=== PATIENT | female | born 1985 | race Caucasian/White ===

== ENCOUNTER → 2024-12-09 | Outpatient (CLI) | payer SELFPAY ==
[2024-12-09 11:11] LABS: HCT 37.8 % (37.2-46.3); HGB 13.0 g/dL (12.0-15.0); MCH 31.6 pg (27.0-32.0); MCHC 34.4 g/dL (32.0-37.0); MCV 91.7 fL (80.0-97.0); Platelet Count 297 10*3/uL (140-440); RBC 4.12 10*6/uL (4.10-5.20); RDW 12.1 % (11.5-14.5); WBC 8.39 10*3/uL (4.50-10.00)
[2024-12-09 11:43] LABS: T4, Free (Free Thyroxine) 1.14 ng/dL (0.78-2.19)
[2024-12-09 15:41] LABS: Hepatitis C IgG Antibody Nonreactive (Nonreactive)
[2024-12-09 15:48] LABS: Follicle Stimulating Hormone 5.4 mIU/mL
[2024-12-09 17:07] LABS: HIV 2 AB Non-Reactive (Non-Reactive); HIV AB P24 Non-Reactive (Non-Reactive); HIV P24 AG Non-Reactive (Non-Reactive)
== END | disposition home or self-care (01) ==
LOC: LABWHC1 10:39
PROVIDERS: ATTEND Obstetrics & Gynecology Reproductive Endocrinology
DX: Z11.3 Encounter for screening for infections with a predominantly sexual mode of transmission (principal); Z13.29 Encounter for screening for other suspected endocrine disorder; Z13.21 Encounter for screening for nutritional disorder; E22.1 Hyperprolactinemia
CPT/HCPCS: 36415; 82306; 82397; 82670; 83001; 83002; 84144; 84146; 84439; 84443; 84481; 85027; 86592; 86704; 86762; 86787; 86803; 86900; 86901; 87350; 87390